=== PATIENT | female | born 1960 ===

== ENCOUNTER 2017-09-07 15:25 | Emergency (ER) | payer OTHER ==
[2017-09-07 15:25] VITALS: BMI 34.9
--- NOTE | 2017-09-07 16:43 | C.PDOC ---
History Of Present Illness 56 year old female complains of right knee pain for 5 days. Patient describes pain as aching and throbbing, worsened with walking or standing and reports she has been taking Ibuprofen with transient relief.Patient denies any injury, fall , numbness, calf pain or weakness. Time Seen by Provider: 09/07/17 16:18 Chief Complaint (Nursing): Lower Extremity Problem/Injury History Per: Patient History/Exam Limitations: no limitations Onset/Duration Of Symptoms: Days Current Symptoms Are (Timing): Still Present Past Medical History Reviewed: Historical Data, Nursing Documentation, Vital Signs Vital Signs: Last Vital Signs Temp 98 F 09/07/17 15:44 Pulse 62 09/07/17 15:44 Resp 18 09/07/17 15:44 BP 142/81 09/07/17 15:44 Pulse Ox 100 09/07/17 17:11 - Medical History PMH: Arthritis, Diabetes, HTN Surgical History: No Surg Hx - [facility] Procedures INJECT/INFUSE NEC (06/29/14) Family History: States: No Known Family Hx - Social History Hx Alcohol Use: No Hx Substance Use: No Review Of Systems Constitutional: Negative for: Fever, Chills Cardiovascular: Negative for: Chest Pain Musculoskeletal: Positive for: Leg Pain Skin: Negative for: Rash Neurological: Negative for: Weakness, Numbness Physical Exam - Physical Exam Appears: Non-toxic, No Acute Distress Skin: Warm, Dry, No Rash Head: Atraumatic, Normacephalic Eye(s): bilateral: Normal Inspection Oral Mucosa: Moist Neck: Normal ROM, Supple Extremity: No Deformity, Other (right knee with mild swelling and tenderness to anterolateral aspect. no erythema, no ecchymosis, no laxity on valgus/varus stress. ) Extremity: Bilateral: Normal ROM Pulses: Left Dorsalis Pedis: Normal, Right Dorsalis Pedis: Normal Neurological/Psych: Oriented x3 ED Course And Treatment O2 Sat by Pulse Oximetry: 100 (RA) Pulse Ox Interpretation: Normal Medical Decision Making Medical Decision Making: impression: knee pain, atraumatic Plan: xray right knee Progress: Xray viewed by me showing Re-Eval: Recommend rest ice and analgesics. Follow up with orthopedic if the symptoms persist Disposition Counseled Patient/Family Regarding: Diagnosis, Need For Followup, Rx Given - Disposition Referrals: Sunita Stephenson MD [Staff Provider] - Justin Weiss MD [Medical Doctor] - Disposition: HOME/ ROUTINE Disposition Time: 17:17 Condition: GOOD Additional Instructions: Hobbs radiografa muestra derrame y calcificacin del tendn Cutter Tylenol 500 mg o ibuprofeno para el dolor cada 6-8 horas segn sea necesario, con alimentos para no molestar el estmago Puede aplicar hielo en el lilliana Azucena un seguimiento con hobbs mdico u ortopdico si el dolor contina y persiste Regrese al departamento de emergencia en cualquier momento si los sntomas persisten o empeoran. [place] por permitir que el equipo de [email or web address] sea parte de hobbs cuidado hoy. Fuiste visto por CULLEN Patricia Your xray shows effusion and calcification of tendon Take Tylenol 500mg or Ibuprofen for pain every 6-8 hours as needed, with food to not upset stomach Ultram for severe pain Can apply ice to area Follow up with your doctor or orthopedic if the pain continues and persists Return to the emergency department at any time if symptoms persist or worsen. Thank you for allowing the [facility] team to be part of your care today. 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 - Scribe Statement The provider has reviewed the documentation as recorded by the Emeraldibmamadou Gee All medical record entries made by the Scribe were at my direction and personally dictated by me. I have reviewed the chart and agree that the record accurately reflects my personal performance of the history, physical exam, medical decision making, and the department course for this patient. I have also personally directed, reviewed, and agree with the discharge instructions and disposition.
--- NOTE | 2017-09-07 17:15 | RAD ---
PROCEDURE: Right Knee Radiographs. HISTORY: pain for 5 days, no trauma COMPARISON: None. FINDINGS: BONES: No fracture or lytic lesion. JOINTS: Tiny spurs medial tibial spine and medial femoral condyles towards intercondylar fossa. Minimal arthritic changes suggested mild posterior inferior patellar spurring. Patellofemoral joint space appears narrowed JOINT EFFUSION: Present OTHER FINDINGS: Quadriceps insertional enthesophyte IMPRESSION: No fracture or lytic lesion. Mild arthrosis Joint effusion Quadriceps insertional enthesophyte
[2017-09-07 17:30] VITALS: BP 163/93; PULSE 63; RESP 20; TEMP 98.2; O2SAT 98
== END 2017-09-07 17:35 | disposition home or self-care (01) ==
LOC: C.ER 15:25
DX: M25.561 Pain in right knee (principal); M25.461 Effusion, right knee; E11.9 Type 2 diabetes mellitus without complications; I10 Essential (primary) hypertension
CPT/HCPCS: 73562; 96372; 99284; J1885

== ENCOUNTER 2017-12-26 13:52 | Emergency (ER) | payer OTHER ==
[2017-12-26 13:59] VITALS: BMI 33.3
[2017-12-26 14:04] VITALS: BP 129/70; PULSE 70; RESP 20; TEMP 99.3; O2SAT 99
--- NOTE | 2017-12-26 14:19 | C.PDOC ---
History Of Present Illness 57 year old female with PMHx of chronic pain to right wrist and knee presents to the ED c/o acute exacerbation of right wrist and right knee pain for the past week. Patient reports she has had this pain for the past few years, states she takes Advil with no improvement. Patient is currently c/o swelling to both right wrist and right knee. Patient states symptoms worsen with movement and weight bearing. Patient was given Ultram for symptoms in the past and is requesting that and a referral to an orthopedist as well. Patient denies fever , chills, weakness, numbness, new injury, fall, trauma. Time Seen by Provider: 12/26/17 14:06 Chief Complaint (Nursing): Upper Extremity Problem/Injury History Per: Patient History/Exam Limitations: no limitations Onset/Duration Of Symptoms: Days Current Symptoms Are (Timing): Still Present Recent travel outside of the [place]: No Additional History Per: Patient Past Medical History Reviewed: Historical Data, Nursing Documentation, Vital Signs Vital Signs: Last Vital Signs Temp 99.3 F 12/26/17 13:58 Pulse 70 12/26/17 13:58 Resp 20 12/26/17 13:58 BP 129/70 12/26/17 13:58 Pulse Ox 99 12/26/17 14:36 - Medical History PMH: Arthritis, Diabetes, HTN Denies: HIV, Chronic Kidney Disease Surgical History: No Surg Hx - [facility] Procedures INJECT/INFUSE NEC (06/29/14) Family History: States: Unknown Family Hx - Social History Hx Alcohol Use: No Hx Substance Use: No Review Of Systems Constitutional: Negative for: Fever, Chills Cardiovascular: Negative for: Chest Pain Respiratory: Negative for: Shortness of Breath Gastrointestinal: Negative for: Nausea, Vomiting Musculoskeletal: Positive for: Hand Pain, Foot Pain Skin: Negative for: Rash Physical Exam - Physical Exam Appears: Non-toxic, No Acute Distress Skin: Normal Color, Warm, Dry Head: Atraumatic, Normacephalic Eye(s): bilateral: Normal Inspection Oral Mucosa: Moist Neck: Normal ROM, Supple Chest: Symmetrical Cardiovascular: Rhythm Regular Respiratory: Normal Breath Sounds, No Rales, No Rhonchi, No Wheezing Extremity: Normal ROM, Tenderness (non focal right wrist and right knee), Swelling (right distal radial aspect.), Other (right knee moderate effusion in front of knee. pain with weight bearing) Extremity: Bilateral: Normal Color And Temperature Pulses: Left Radial: Normal, Right Radial: Normal, Left Dorsalis Pedis: Normal, Right Dorsalis Pedis: Normal Neurological/Psych: Oriented x3, Normal Speech, Normal Motor, Normal Sensation Gait: Steady (pain with weightbearing) ED Course And Treatment O2 Sat by Pulse Oximetry: 99 (ON RA) Pulse Ox Interpretation: Normal Medical Decision Making Medical Decision Making: Impression: acute exacerbation right wrist and knee pain Disposition Counseled Patient/Family Regarding: Diagnosis, Need For Followup, Rx Given - Disposition Referrals: [facility] [Outside] [facility] [Outside] Vin Keith MD [Staff Provider] - Disposition: HOME/ ROUTINE Disposition Time: 14:17 Condition: IMPROVED Prescriptions: Tramadol HCl [Ultram] 50 mg PO QID #20 tab Instructions: Joint Pain Forms: [facility] (Syrian) - Clinical Impression Clinical Impression: Chronic wrist pain, Chronic knee pain - Scribe Statement The provider has reviewed the documentation as recorded by the Scribe Cristian Ding All medical record entries made by the Scribe were at my direction and personally dictated by me. I have reviewed the chart and agree that the record accurately reflects my personal performance of the history, physical exam, medical decision making, and the department course for this patient. I have also personally directed, reviewed, and agree with the discharge instructions and disposition.
== END 2017-12-26 15:27 | disposition home or self-care (01) ==
LOC: C.ER 13:52
DX: G89.29 Other chronic pain (principal); M25.531 Pain in right wrist; M25.561 Pain in right knee; E11.9 Type 2 diabetes mellitus without complications; I10 Essential (primary) hypertension